=== PATIENT | male | born 1940 | race Caucasian/White ===

== ENCOUNTER 2016-08-11 22:41 | Inpatient (IN) | payer MEDICARE, BC ==
[2016-08-11] VITALS (67 sets, daily range): BP systolic 138–143; BP diastolic 84–87; PULSE 80–83; TEMP 98.4–98.5; O2SAT 95–100
[~2016-08-11] VITALS: Ht 175.3 cm; Wt 61.6 kg
[2016-08-11] MEDS ORDERED: PRINZIDE 12.5 M1 TA1 PO (23:17)
[2016-08-11] MEDS ORDERED: SYNTHROID 0.0.025 MG PO (23:18)
[2016-08-11] MEDS ORDERED: PRAVACHOL 40MG40 MG PO (23:19)
[2016-08-11] MEDS ORDERED: HYTRIN 5MG C5 MG/CAP PO (23:19)
[2016-08-12] VITALS (515 sets, daily range): BP systolic 106–154; BP diastolic 51–81; PULSE 62–94; TEMP 97.8–99.2; O2SAT 92–100
[2016-08-12 06:08] LABS: BASO % 0.2 % (0.0-2.0); EOS # 0.1 (0.0-0.7); EOS % 0.6 % (0-4.0); GRAN # 8.6 (1.4-6.5); HEMATOCRIT 38.8 % (42.0-52.0); HEMOGLOBIN 13.4 g/dl (13.5-18.0); LYMPH # 1.3 (1.2-3.4); LYMPH % 12.3 % (20.0-51.0); MEAN CELL VOLUME 86 fl (80.0-100.0); MEAN CORPUSCULAR HEMOGLOBIN 30 pg (27.0-31.0); MEAN CORPUSCULAR HGB CONC 35 g/dl (33.0-37.0); MEAN PLATELET VOLUME 10.3 fl (7.4-10.4); MONO # 0.6 (0.1-0.6); MONO % 5.6 % (1.7-9.3); PLATELET COUNT 147 K/mm3 (130-400); RED BLOOD COUNT 4.51 M/mm3 (4.20-5.60); REDCELL DISTRIBUTION WIDTH-CV 13.7 % (11.5-14.5); WHITE BLOOD COUNT 10.6 K/mm3 (4.8-10.8)
[2016-08-12 06:16] LABS: ADJUSTED CALCIUM 8.8 mg/dL (8.4-10.2); ALBUMIN 3.5 gm/dL (3.5-5.0); CALCIUM 8.4 mg/dL (8.4-10.2); CREATININE, serum 1.2 mg/dL (0.66-1.25); POTASSIUM 3.2 mmol/L (3.4-5.0); TOTAL PROTEIN 6.6 gm/dL (6.4-8.2)
[2016-08-13 01:48] VITALS: BP 140/73; PULSE 74; TEMP 98.7
[2016-08-13 06:05] VITALS: BP 131/72; PULSE 63; TEMP 98
[2016-08-13 07:12] LABS: BASO % 0.1 % (0.0-2.0); EOS # 0.1 (0.0-0.7); EOS % 0.9 % (0-4.0); GRAN # 7.7 (1.4-6.5); GRAN % 78.3 % (42.2-75.2); HEMATOCRIT 37.9 % (42.0-52.0); HEMOGLOBIN 13.3 g/dl (13.5-18.0); LYMPH # 1.3 (1.2-3.4); MEAN CELL VOLUME 84 fl (80.0-100.0); MEAN CORPUSCULAR HEMOGLOBIN 30 pg (27.0-31.0); MEAN CORPUSCULAR HGB CONC 35 g/dl (33.0-37.0); MEAN PLATELET VOLUME 10.1 fl (7.4-10.4); MONO # 0.7 (0.1-0.6); MONO % 7.2 % (1.7-9.3); PLATELET COUNT 173 K/mm3 (130-400); RED BLOOD COUNT 4.49 M/mm3 (4.20-5.60); REDCELL DISTRIBUTION WIDTH-CV 13.5 % (11.5-14.5); WHITE BLOOD COUNT 9.9 K/mm3 (4.8-10.8)
[2016-08-13 07:31] LABS: ADJUSTED CALCIUM 9.3 mg/dL (8.4-10.2); ALBUMIN 3.1 gm/dL (3.5-5.0); BILIRUBIN,TOTAL 1.7 mg/dL (0.0-1.0); CALCIUM 8.6 mg/dL (8.4-10.2); CREATININE, serum 1.19 mg/dL (0.66-1.25); POTASSIUM 3.3 mmol/L (3.4-5.0); TOTAL PROTEIN 6.2 gm/dL (6.4-8.2)
[2016-08-13 10:16] VITALS: BP 138/74; PULSE 70; TEMP 98.8
[2016-08-13 14:08] VITALS: BP 138/82; PULSE 64; TEMP 98.6
[2016-08-13 18:22] VITALS: BP 123/73; PULSE 71; TEMP 98.1
[2016-08-13 22:07] VITALS: BP 147/77; PULSE 59; TEMP 98.7
[2016-08-14 04:54] VITALS: BP 142/79; PULSE 67; TEMP 98.4
[2016-08-14 06:10] LABS: BASO % 0.3 % (0.0-2.0); EOS # 0.3 (0.0-0.7); EOS % 3.4 % (0-4.0); GRAN # 6.6 (1.4-6.5); GRAN % 69.6 % (42.2-75.2); HEMOGLOBIN 12.9 g/dl (13.5-18.0); LYMPH # 1.6 (1.2-3.4); LYMPH % 16.7 % (20.0-51.0); MEAN CELL VOLUME 85 fl (80.0-100.0); MEAN CORPUSCULAR HEMOGLOBIN 30 pg (27.0-31.0); MEAN CORPUSCULAR HGB CONC 35 g/dl (33.0-37.0); MONO # 0.9 (0.1-0.6); MONO % 9.5 % (1.7-9.3); PLATELET COUNT 188 K/mm3 (130-400); RED BLOOD COUNT 4.32 M/mm3 (4.20-5.60); REDCELL DISTRIBUTION WIDTH-CV 13.4 % (11.5-14.5); WHITE BLOOD COUNT 9.5 K/mm3 (4.8-10.8)
[2016-08-14 06:21] LABS: HEMATOCRIT 36.8 % (42.0-52.0)
[2016-08-14 06:30] LABS: ALBUMIN 3.2 gm/dL (3.5-5.0); CALCIUM 8.4 mg/dL (8.4-10.2); CREATININE, serum 1.14 mg/dL (0.66-1.25); POTASSIUM 3.5 mmol/L (3.4-5.0)
[2016-08-14 13:44] VITALS: BP 135/77; PULSE 60; TEMP 97.3
[2016-08-14 18:00] VITALS: BP 140/81; PULSE 80; TEMP 98.6
[2016-08-14 21:22] VITALS: BP 147/76; PULSE 69; TEMP 98.3
[2016-08-15 05:46] VITALS: BP 137/76; PULSE 70; TEMP 97.8
[2016-08-15 09:32] VITALS: BP 141/71; PULSE 62; TEMP 98.8
[2016-08-15 14:37] VITALS: BP 144/82; PULSE 90; TEMP 97.6
[2016-08-15 17:20] VITALS: BP 153/75; PULSE 74; TEMP 98.4
[2016-08-15 22:24] VITALS: BP 153/79; PULSE 74; TEMP 98.4
[2016-08-16 01:40] VITALS: BP 150/72; PULSE 62; TEMP 98.5
[2016-08-16 06:38] VITALS: BP 134/70; PULSE 71; TEMP 97.6
[2016-08-16 07:30] LABS: HEMATOCRIT 39.6 % (42.0-52.0); HEMOGLOBIN 13.6 g/dl (13.5-18.0); MEAN CELL VOLUME 85 fl (80.0-100.0); MEAN CORPUSCULAR HEMOGLOBIN 29 pg (27.0-31.0); MEAN CORPUSCULAR HGB CONC 34 g/dl (33.0-37.0); MEAN PLATELET VOLUME 9.8 fl (7.4-10.4); PLATELET COUNT 243 K/mm3 (130-400); RED BLOOD COUNT 4.68 M/mm3 (4.20-5.60); REDCELL DISTRIBUTION WIDTH-CV 13.3 % (11.5-14.5); WHITE BLOOD COUNT 12.1 K/mm3 (4.8-10.8)
[2016-08-16 08:30] LABS: ADD PATHOLOGY DIFF REVIEW NO
[2016-08-16 08:36] LABS: BAND 9 % (0-10); EOSINOPHIL 1 % (0-4); MYELOCYTE 2 % (0-0); NEUTROPHILS 71 % (42.0-75.2); PLATELET ESTIMATE NORMAL (NORMAL); TOTAL CELLS COUNTED 100
[2016-08-16 08:53] LABS: ALBUMIN 3.6 gm/dL (3.5-5.0); CALCIUM 8.7 mg/dL (8.4-10.2); CREATININE, serum 1.12 mg/dL (0.66-1.25); MAGNESIUM 2.2 mg/dL (1.6-2.3); POTASSIUM 3.4 mmol/L (3.4-5.0); TOTAL PROTEIN 6.8 gm/dL (6.4-8.2)
[2016-08-16 09:45] VITALS: BP 151/76; PULSE 73; TEMP 97.9
[2016-08-16 13:26] VITALS: BP 129/77; PULSE 82; TEMP 97.8
[2016-08-16 17:26] VITALS: BP 121/90; PULSE 77; TEMP 98.4
[2016-08-16 21:45] VITALS: BP 156/81; PULSE 79; TEMP 98.7
[2016-08-17 02:09] VITALS: BP 131/73; PULSE 74; TEMP 98.8
[2016-08-17 06:34] VITALS: BP 132/73; PULSE 69; TEMP 98.9
[2016-08-17 09:47] VITALS: BP 127/83; PULSE 100
[2016-08-17 13:52] VITALS: BP 133/77; PULSE 81
[2016-08-17] MEDS ORDERED: CIPRO 500MG TA500 MG PO (14:16)
[2016-08-17] MEDS ORDERED: FLAGYL500 MG PO (14:17)
== END 2016-08-17 16:10 | disposition home or self-care (01) | DRG 390 ==
LOC: IMCU 22:41 → SURG 22:41 → IMCU 22:41 → SURG 08-12 08:50
PROVIDERS: Surgery
DX: K56.7 Ileus, unspecified (principal); I10 Essential (primary) hypertension
CPT/HCPCS: A9284; C9113; J0744; J2270; J2405; J2765; J3480; J7120